=== PATIENT | female | born 1995 | race Caucasian/White ===

== ENCOUNTER 2020-03-07 13:47 | Emergency (ER) | payer MEDICAID, OTHER ==
[~2020-03-07] VITALS: Ht 172.7 cm; Wt 93.0 kg
[2020-03-07 14:10] VITALS: BP 145/94
[2020-03-07 15:33] LABS: Urine Bacteria NONE SEEN /hpf (None Seen); Urine Blood Negative /uL (Negative); Urine Mucus FEW (None Seen); Urine Specific Gravity 1.024 (1.001-1.035); Urine WBC 49 /hpf (0 - 5)
[2020-03-07] MEDS ORDERED: cefTRIAXone W LIDOCAINE 1 GM IM IM ONE (16:45)
[2020-03-07] MEDS ORDERED: cefTRIAXone SOD 1,000 MG VL ONE ×2 (17:18→17:40)
[2020-03-07] MEDS ORDERED: LIDOCAINE 2% (LOCAL ANESTH.) PF 5ml SDV ONE (17:18)
[2020-03-07] MEDS ORDERED: ALBUTEROL SULF HFA 90MCG INH 200DOSE IN SCH (22:00)
== END 2020-03-07 18:33 | disposition home or self-care (01) ==
LOC: ER 13:47
DX: J45.901 Unspecified asthma with (acute) exacerbation (principal); N39.0 Urinary tract infection, site not specified; F17.210 Nicotine dependence, cigarettes, uncomplicated; Z20.828 Contact with and (suspected) exposure to other viral communicable diseases
CPT/HCPCS: 36415; 71045; 81001; 81025; 87426; 96372; 99284; J0696; J2001

== ENCOUNTER 2020-03-12 19:41 | Emergency (ER) | payer MEDICAID ==
[~2020-03-12] VITALS: Ht 172.7 cm; Wt 95.3 kg
[2020-03-12 20:01] VITALS: BP 130/84
[2020-03-12 21:06] LABS: Urine Bacteria NONE SEEN /hpf (None Seen); Urine Blood TRACE /uL (Negative); Urine Mucus FEW (None Seen); Urine Specific Gravity 1.029 (1.001-1.035); Urine WBC 105 /hpf (0 - 5)
== END 2020-03-12 21:33 | disposition home or self-care (01) ==
LOC: ER 19:43
DX: B37.3 Candidiasis of vulva and vagina (principal); N39.0 Urinary tract infection, site not specified; F17.210 Nicotine dependence, cigarettes, uncomplicated; Z32.02 Encounter for pregnancy test, result negative
CPT/HCPCS: 81001; 81025

== ENCOUNTER 2020-12-27 02:07 | Emergency (ER) | payer SELFPAY ==
[~2020-12-27] VITALS: Ht 162.6 cm; Wt 90.7 kg
[2020-12-27] MEDS ORDERED: LORazepam 2MG/ML-1ML VIAL IV ONE (02:45)
[2020-12-27 02:57] VITALS: BP 151/85
[2020-12-27 03:41] LABS: Basophils # (auto) 0.1 10 ^3/uL (0-0.2); Eosinophils # (auto) 0.1 10 ^3/uL (0-0.8); Neutrophils # (auto) 13.5 10 ^3/uL (1.6-8.6)
[2020-12-27 03:43] LABS: Basophils % (auto) 0.4 % (0.0-2.0); Eosinophils % (auto) 0.8 % (0.0-7.0); Hematocrit 36.2 % (36.0-46.0); Hemoglobin 11.9 g/dL (12.2-16.2); Lymphocytes % (auto) 12.4 % (10.0-50.0); Mean Corpuscular Hemoglobin 25.3 pg (28.0-32.0); Mean Corpuscular Volume 76.9 fL (80.0-100.0); Monocytes # (auto) 0.6 10 ^3/uL (0-1.3); Monocytes % (auto) 3.9 % (0.0-12.0); Neutrophils % (auto) 82.5 % (37.0-80.0); Red Blood Cells 4.71 10^6/uL (4.0-5.20); Red Cell Distribution Width 15.6 % (11.8-14.3); White Blood Cell 16.4 10^3/uL (4.4-10.8)
[2020-12-27 03:50] LABS: Albumin 3.7 g/dL (3.4-5.0); BUN/Creatinine Ratio 15.1; Calcium 8.8 mg/dL (8.5-10.1)
[2020-12-27 03:53] LABS: Bilirubin, Total 0.2 mg/dL (0.2-1.0); Total Protein 7.8 g/dL (6.4-8.2)
[2020-12-27 03:58] LABS: Salicylate 2.2 mg/dL (2.8-20.0)
[2020-12-27 04:01] LABS: Acetaminophen < 2.0 ug/mL (10-30); Potassium 3.7 mmol/L (3.5-5.1)
[2020-12-27 05:00] LABS: Urine Bacteria MANY /hpf (None Seen); Urine Blood 3+ /uL (Negative); Urine Hyaline Cast MANY /lpf (0 - 2); Urine Mucus FEW (None Seen); Urine Specific Gravity 1.025 (1.001-1.035); Urine WBC 11 /hpf (0 - 5)
[2020-12-27 05:55] LABS: Amphetamine Screen, Urine NEGATIVE (NEGATIVE); Barbiturate Scree,Urine NEGATIVE (NEGATIVE); Benzodiazephine Screen, Urine NEGATIVE (NEGATIVE); Cannabinoid Screen, Urine NEGATIVE (NEGATIVE); Cocaine Screen, Urine NEGATIVE (NEGATIVE); Opiate Scree,Urine NEGATIVE (NEGATIVE); Phencyclidine Screen, Urine NEGATIVE (NEGATIVE)
== END 2020-12-27 05:15 | disposition left against medical advice (07) ==
LOC: EDBD 02:07 → ER 02:12
DX: S09.8XXA Other specified injuries of head, initial encounter (principal); J45.909 Unspecified asthma, uncomplicated; F17.210 Nicotine dependence, cigarettes, uncomplicated; Y08.89XA Assault by other specified means, initial encounter; Y93.89 Activity, other specified; Y92.89 Other specified places as the place of occurrence of the external cause; Y99.8 Other external cause status
CPT/HCPCS: 36415; 70450; 72125; 80053; 80307; 80320; 80329; 81001; 84702; 85025

== ENCOUNTER 2023-02-12 18:32 | Emergency (ER) | payer MEDICAID ==
[~2023-02-12] VITALS: Ht 170.2 cm; Wt 110.5 kg
[2023-02-12] MEDS ORDERED: HYDR-4902 PO (22:35)
[2023-02-12] MEDS ORDERED: ZOFR4T PO (22:35)
[2023-02-12] MEDS ORDERED: HYDROcodone-ACET 5/325MG TAB PO ONE (22:45)
[2023-02-12 22:50] VITALS: BP 134/85; PULSE 78; RESP 18; TEMP 97.6; O2SAT 97
== END 2023-02-12 22:50 | disposition home or self-care (01) ==
LOC: ER 18:32
DX: S00.03XA Contusion of scalp, initial encounter (principal); R11.2 Nausea with vomiting, unspecified; J45.909 Unspecified asthma, uncomplicated; F17.210 Nicotine dependence, cigarettes, uncomplicated; W10.9XXA Fall (on) (from) unspecified stairs and steps, initial encounter; Y93.89 Activity, other specified; Y92.89 Other specified places as the place of occurrence of the external cause; Y99.8 Other external cause status
CPT/HCPCS: 70450

== ENCOUNTER 2023-07-21 18:51 | Emergency (ER) | payer SELFPAY ==
[~2023-07-21] VITALS: Ht 170.2 cm; Wt 109.0 kg
[~2023-07-21 18:51] MED LIST: HYDR-4902 PO; ZOFR4T PO
[2023-07-21 20:10] VITALS: BP 132/88; PULSE 94; RESP 17; TEMP 98.4; O2SAT 97
[2023-07-21 20:43] LABS: Hemoglobin 11.9 g/dL (12.2-16.2); Mean Corpuscular Volume 78.8 fL (80.0-100.0); Nucleated Red Blood Cells % 0.1 %; White Blood Cell 11.7 10^3/uL (4.4-10.8)
[2023-07-21 20:46] LABS: Basophils # (auto) 0.1 10 ^3/uL (0-0.2); Basophils % (auto) 0.4 % (0.0-2.0); Eosinophils # (auto) 0.4 10 ^3/uL (0-0.8); Eosinophils % (auto) 3.7 % (0.0-7.0); Hematocrit 37.3 % (36.0-46.0); Lymphocytes # (auto) 3.4 10 ^3/uL (0.4-5.4); Lymphocytes % (auto) 29.2 % (10.0-50.0); Mean Corpuscular Hemoglobin 25.1 pg (28.0-32.0); Mean Corpuscular Hgb Conc. 31.9 g/dL (32.0-36.0); Monocytes # (auto) 0.6 10 ^3/uL (0-1.3); Neutrophils # (auto) 7.2 10 ^3/uL (1.6-8.6); Neutrophils % (auto) 61.7 % (37.0-80.0); Red Blood Cells 4.74 10^6/uL (4.0-5.20); Red Cell Distribution Width 15.8 % (11.8-14.3)
[2023-07-21 20:57] LABS: Chloride 107 mmol/L (98-107); Potassium 3.9 mmol/L (3.5-5.1); Sodium 140 mmol/L (136-145)
[2023-07-21 20:58] LABS: Anion Gap 6 (5-15); Carbon Dioxide 27 mmol/L (20-30)
[2023-07-21 20:59] LABS: Calcium 9.7 mg/dL (8.5-10.1)
[2023-07-21 21:03] LABS: BUN/Creatinine Ratio 12.5 (10.0-20.0); Blood Urea Nitrogen 10 mg/dL (9-23); Glucose 107 mg/dL (74-106)
== END 2023-07-21 22:49 | disposition home or self-care (01) ==
LOC: ER 18:51
DX: N93.9 Abnormal uterine and vaginal bleeding, unspecified (principal); R10.2 Pelvic and perineal pain; J45.909 Unspecified asthma, uncomplicated; F17.210 Nicotine dependence, cigarettes, uncomplicated; Z32.02 Encounter for pregnancy test, result negative; Z53.29 Procedure and treatment not carried out because of patient's decision for other reasons; Z79.899 Other long term (current) drug therapy
CPT/HCPCS: 36415; 80048; 84702; 85025; 86900; 86901

== ENCOUNTER 2023-08-14 17:14 | Emergency (ER) | payer SELFPAY ==
[~2023-08-14] VITALS: Ht 170.2 cm; Wt 113.9 kg
[2023-08-14 17:31] VITALS: BP 159/104; PULSE 109; RESP 16; O2SAT 97
== END 2023-08-14 21:13 | disposition left against medical advice (07) ==
LOC: ER 17:14
DX: M79.672 Pain in left foot (principal); M79.89 Other specified soft tissue disorders; Z53.21 Procedure and treatment not carried out due to patient leaving prior to being seen by health care provider; W22.8XXA Striking against or struck by other objects, initial encounter; Y93.89 Activity, other specified; Y92.89 Other specified places as the place of occurrence of the external cause; Y99.8 Other external cause status

== ENCOUNTER 2024-07-26 22:03 | Emergency (ER) | payer SELFPAY ==
[~2024-07-26] VITALS: Ht 175.3 cm; Wt 113.4 kg
[2024-07-26 22:21] VITALS: BP 140/92; PULSE 85; RESP 18; O2SAT 96
[2024-07-26 22:29] LABS: Urine Bacteria None Seen /hpf (None Seen)
[2024-07-26 22:34] LABS: Urine Blood Negative /uL (Negative); Urine Clarity Clear (Clear); Urine Color Light-Yellow (Yellow); Urine Protein, UAD Negative (Negative); Urine Specific Gravity 1.016 (1.001-1.035); Urine Squamous Epithelial Cell FEW /hpf (<5); Urine Urobilinogen Normal (Negative); Urine WBC 2 /HPF (0-5); Urine pH 7.5 (5.0-9.0)
--- NOTE | 2024-07-26 22:49 | ED.PDOC ---
History of Present Illness HPI Comments 28-year-old female came to emergency room due to urinary issues. Patient is concerned that she might have a urinary tract infection, after learning that her boyfriend cheated on her. States she has been having dysuria and hematuria when she urinates. Chief Complaint: Urinary Time Seen by MD: 22:49 Primary Care Provider: NONE Reviewed Notes: Nurses Notes Allergies: Coded Allergies: NO KNOWN ALLERGIES (Unverified , 03/07/20) Home Meds Active Scripts Ondansetron Odt 4MG Tab (ZOFRAN PO) 4 Mg Tb, 1 TAB PO Q8HR, #12 TAB As needed for nausea vomit ODT TAB-DISSOLVE IN MOUTH, THEN SWALLOW Prov:CORINE BETHEA NP 02/12/23 Hydrocodone-Acetaminophen (Hydrocodone Bitartrate/AC 5-325 mg) 1 Tab Tab, 1 TAB PO Q6HR, #6 TAB As needed for pain Prov:CORINE BETHEA NP 02/12/23 Information Source: Patient Mode of Arrival: Ambulatory Severity: Mild Timing: Days Duration: Intermittent Prehospital treatment: None Past Medical History PAST MEDICAL HISTORY: Asthma, Denies Surgical History: Denies all surgeries BUILDING INSULATION SUPERVISOR History: No Pertinent BUILDING INSULATION SUPERVISOR History Family History Family History: Reviewed,noncontributory to illness Social History Smoker: Cigarettes, Less Than 1 Pack/Day Alcohol: Occasionally Drugs: Denies Drug Use Lives In: Home Constitutional: denies: chills, diaphoresis, fatigue, fever, malaise, sweats, weakness, others EENTM: denies: blurred vision, double vision, ear bleeding, ear discharge, ear drainage, ear pain, ear ringing, eye pain, eye redness, hearing loss, mouth pain, mouth swelling, nasal discharge, nose bleeding, nose congestion, nose pain, photophobia, tearing, throat pain, throat swelling, voice changes, others Respiratory: denies: cough, hemoptysis, orthopnea, SOB at rest, shortness of breath, SOB with excertion, stridor, wheezing, others Cardiovascular: denies: chest pain, dizzy spells, diaphoresis, Dyspnea on exertion, edema, irregular heart beat, left arm pain, lightheadedness, palpitations, PND, syncope, others Gastrointestinal: denies: abdomen distended, abdominal pain, blood streaked bowels, constipated, diarrhea, dysphagia, difficulty swallowing, hematemesis, melena, nausea, poor appetite, poor fluid intake, rectal bleeding, rectal pain, vomiting, others Genitourinary: reports: dysuria, hematuria; denies: abnormal vagina bleeding, burning, dyspareunia, flank pain, frequency, incontinence, pain, , vagina discharge, urgency, others Neurological: denies: dizziness, fainting, headache, left sided numbness, left sided weakness, numbness, paresthesia, pre-existing deficit, right sided numbness, right sided weakness, seizure, speech problems, tingling, tremors, weakness, others Musculoskeletal: denies: back pain, gout, joint pain, joint swelling, muscle pain, muscle stiffness, neck pain, others Integumetry: denies: bruises, change in color, change in hair/nails, dryness, laceration, lesions, lumps, rash, wounds, others Allergic/Immunocompromised: denies: Difficulty Healing, Frequent Infections, Hives, Itching, others Hematologic/Lymphatic: denies: anemia, blood clots, easy bleeding, easy bruising, swollen glands, others Endocrine: denies: excessive hunger, excessive sweating, excessive thirst, excessive urination, flushing, intolerance to cold, intolerance to heat, unexplained weight gain, unexplained weight loss, others Psychiatric: denies: anxiety, bipolar disorder, depression, hopeless, panic disorder, schizophrenia, sleepless, suicidal, others Physical Exam General Appearance: Mild Distress (Patient appears mildly histrionic and has some moderate distress due to anxiety more than physical concerns.), Obese HEENT: Normal ENT Inspection, Pharynx Normal, TMs Normal Neck: Full Range of Motion, Non-Tender, Normal, Normal Inspection Respiratory: Chest Non-Tender, Lungs Clear, No Accessory Muscle Use, No Respiratory Distress, Normal Breath Sounds Cardiovascular: No Edema, No JVD, No Murmur, No Gallop, Normal Peripheral Pulses, Regular Rate/Rhythm Breast Exam: Deferred Gastrointestinal: No Organomegaly, Non Tender, No Pulsatile Mass, Normal Bowel Sounds, Soft Genitalia: Deferred Pelvic: Deferred Rectal: Deferred Extremities: No calf tenderness, Normal capillary refill, Normal inspection, Normal range of motion, Non-tender, No pedal edema Musculoskeletal : Apperance: Normal Neurologic: Alert, No Motor Deficits, Normal Affect, Normal Mood, No Sensory Deficits Cerebellar Function: Normal Reflexes: Normal Skin: Dry, Normal Color, Warm Lymphatic: No Adenopathy Was a procedure done? Was a procedure done?: No Differential Dx Considerations may include: Urinary tract infection, anxiety, kidney stones, pyelonephritis X-Ray, Labs, Meds, VS Vital Signs Date Time Temp Pulse Resp B/P (MAP) Pulse Ox O2 Delivery O2 Flow Rate FiO2 07/26/24 22:21 98.4 85 18 140/92 (108) 96 Lab Test 07/26/24 22:18 Range/Units Urine Color Light-yellow Yellow Urine Clarity Clear Clear Urine pH 7.5 5.0-9.0 Urine Specific [place] 1.016 1.001-1.035 Urine Protein Negative Negative Urine Ketones Negative Negative Urine Blood Negative Negative /uL Urine Nitrite Negative Negative Urine Bilirubin Negative Negative Urine Urobilinogen Normal Negative mg/dL Urine Leukocyte Esterase Negative Negative /uL Urine RBC 3 0 - 4 /hpf Urine Microscopic WBC 2 0-5 /HPF Urine Squamous Epithelial Cells Few <5 /hpf Urine Bacteria None seen None Seen /hpf Urine Glucose Normal Normal mg/dL Urine Test Negative Negative X-Ray, Labs, Meds, VS Comment All studies performed the ED were evaluated by me personally. Urinalysis was unremarkable for any systemic concerns or significant blood deposition. I will send the patient home with some Pyridium to aid in discomfort, but if the symptoms continue, patient will need to follow up with her primary care provider or b2b sales professional for continued evaluation. Time of 1ST Reevaluation: 00:36 Reevaluation 1ST: Unchanged Consultation: PCP Patient Education/Counseling: Diagnosis, Treatment Family Education/Counseling: Diagnosis, Treatment, No Family Present Departure 1 Departure Time of Disposition: 00:36 Impression: Primary Impression: Dysuria Disposition: 01 HOME / SELF CARE / HOMELESS Condition: Stable Additional Instructions: Advised patient to utilize Pyridium as needed for urinary discomfort concerns. If symptoms do not resolve in the next few days, patient will need to follow up with the primary care provider or b2b sales professional for continued evaluation and management. e-Prescriptions Phenazopyridine HCl (Phenazopyridine Hydrochlo) 100 Mg Tab 100 MG PO BIDP PRN for 3 Days, #6 TAB Prov: YAZMIN DAMIAN PAC 07/27/24 Discharged With: Self, Friend Critical Care Note Critical Care Time?: No Stability Stability form required: No Heart Score Heart Score: Heart Score Response (Comments) Value History N/A 0 EKG N/A 0 Age N/A 0 Risk Factors N/A 0 Troponin N/A 0 Total 0 I personally scribed for YAZMIN DAMIAN PAC ([email or web address]) on 07/26/24 at 22:49. Electronically submitted by Davon Gonzalez ([email or web address]). YAZMIN DAMIAN PAC Jul 26, 2024 22:49
[2024-07-27] MEDS ORDERED: PHEN-1044 PO (00:38)
== END 2024-07-27 02:08 | disposition home or self-care (01) ==
LOC: ER 22:03
DX: R30.0 Dysuria (principal); R31.9 Hematuria, unspecified; F17.210 Nicotine dependence, cigarettes, uncomplicated; J45.909 Unspecified asthma, uncomplicated
CPT/HCPCS: 81001; 81025